=== PATIENT | female | born 1935 | race Caucasian/White ===

== ENCOUNTER 2023-07-24 21:17 | Inpatient (IN) | payer MEDICARE ==
[~2023-07-24] VITALS: Ht 154.9 cm; Wt 53.2 kg
[~2023-07-24 21:17] MED LIST: AVEL1TAB2; CALCTAB22; CELE100C; COMBIVENT; FOSAMAX; PRED10TA2; VITA500T
[2023-07-24] MEDS ORDERED: ALBU2.5V10 INH (21:37)
[2023-07-24] MEDS ORDERED: PULM0.25 NEB (21:37)
[2023-07-24] MEDS ORDERED: PERF20NE2 INH (21:37)
[2023-07-24 21:52] LABS: VENOUS BASE EXCESS 2.4 (-2.0-2.0); VENOUS HCO3 28.2 MMOL/L (23.0-27.0); VENOUS O2 SATURATION 88.7 % (60.0-80.0); VENOUS PARTIAL PRESSURE CO2 48.1 mmHg (38.0-50.0); VENOUS PARTIAL PRESSURE O2 56.3 mmHg (30.0-50.0); VENOUS PH 7.386 UNITS (7.330-7.430); VENOUS STANDARD HCO3 26.4 MMOL/L; VENOUS TOTAL CO2 29.7 MMOL/L (24.0-28.0)
[2023-07-24 22:00] LABS: BASO # 0.1 10^3/uL (0.0-0.2); BASO % 1.1 % (0.0-1.0); EOS # 0.4 10^3/uL (0.0-0.5); EOS % 4.4 % (0.0-3.0); HEMATOCRIT 40.4 % (36.0-47.0); HEMOGLOBIN 12.6 g/dl (12.0-15.5); LYMPH # 1.2 10^3/uL (1.5-5.0); LYMPH % 15.2 % (24.0-44.0); MEAN CORPUSCULAR HEMOGLOBIN 27.5 pg (27.0-33.0); MEAN CORPUSCULAR HGB CONC 31.2 g/dl (32.0-36.5); MEAN CORPUSCULAR VOLUME 88.2 fl (80.0-96.0); MONO # 0.6 10^3/uL (0.0-0.8); MONO % 7.4 % (2.0-8.0); NEUTROPHILS # 5.6 10^3/uL (1.5-8.5); NEUTROPHILS % 71.5 % (36.0-66.0); PLATELET COUNT, AUTOMATED 301 10^3/uL (150-450); RED BLOOD COUNT 4.58 10^6/uL (4.00-5.40); WHITE BLOOD COUNT 7.9 10^3/uL (4.0-10.0)
[2023-07-24 22:22] LABS: ALBUMIN 3.7 G/DL (3.2-5.2); ALKALINE PHOSPHATASE 43 U/L (46-116); ALT/SGPT 15 U/L (7.0-40); AST/SGOT 16 U/L (<34); BILIRUBIN,DIRECT 0.1 MG/DL (<0.4); BILIRUBIN,TOTAL 0.4 MG/DL (0.3-1.2); BLOOD UREA NITROGEN 15 MG/DL (9-23); CALCIUM LEVEL 9.8 MG/DL (8.3-10.6); CARBON DIOXIDE LEVEL 29 MMOL/L (20-31); CHLORIDE LEVEL 105 MMOL/L (98-107); CK-MB VALUE MASS 1.8 NG/ML (<3.6); CPK CREATINE PHOSPHOKINASE 71 U/L (34-145); CREATININE FOR GFR 0.62 MG/DL (0.55-1.30); GLOMERULAR FILTRATION RATE > 60.0 (>32); GLUCOSE, FASTING 103 MG/DL (74-106); MB/CK RELATIVE INDEX 2.53 (< OR =4); POTASSIUM SERUM 3.8 MMOL/L (3.5-5.1); SODIUM LEVEL 142 MMOL/L (136-145); TOTAL PROTEIN 6.4 G/DL (5.7-8.2)
[2023-07-24 22:24] LABS: THYROID STIMULATING HORMONE 3.509 uIU/ML (0.55-4.78); THYROXINE (T4) 8.3 UG/DL (4.5-10.9)
[2023-07-24 23:57] LABS: CK-MB VALUE MASS 1.5 NG/ML (<3.6)
[2023-07-25 00:43] LABS: MB/CK RELATIVE INDEX 2.27 (< OR =4)
[2023-07-25] MEDS: IPRATROPIUM 0.5MG/ALBUTEROL 2.5MG INH SOL UD 3ML (DUONEB) NEB ONE ×4 (01:18→02:04)
[2023-07-25] MEDS ORDERED: ACETAMINOPHEN TAB 650MG DOSE (2X325MG) PO PRN (03:40)
[2023-07-25] MEDS ORDERED: ALBUTEROL SULFATE 2.5MG/0.5ML INH NEB SOLN NEB PRN (03:40)
[2023-07-25] MEDS: DOXYCYCLINE HYCLATE 100MG TABLET PO ONE (04:18)
[2023-07-25] MEDS: methylPREDNISolone 125MG 2ML VIAL IV SCH (04:18)
[2023-07-25] MEDS ORDERED: C-501TAB3 PO (05:33)
[2023-07-25] MEDS ORDERED: VITA100093 PO (05:33)
[2023-07-25] MEDS ORDERED: CALC500T61 PO (05:33)
[2023-07-25] MEDS ORDERED: BUDE0.254 INH (05:33)
[2023-07-25] MEDS ORDERED: MED REC IN PROGRESS XX SCH (05:35)
[2023-07-25 07:00] LABS: CHOLESTEROL RISK RATIO 3.08 (<5); HDL CHOLESTEROL 58.3 MG/DL (>40); LDL CHOLESTEROL 105.9 MG/DL (<100); NON-HDL-C 121.7 MG/DL
[2023-07-25] MEDS: ASPIRIN 81MG CHEW TABLET PO SCH (08:00)
[2023-07-25] MEDS: HEPARIN SOD (PORCINE) 5000UNITS/ML 1ML VIAL/SYRINGE SC SCH (08:02)
[2023-07-25] MEDS: IPRATROPIUM 0.5MG/ALBUTEROL 2.5MG INH SOL UD 3ML (DUONEB) NEB SCH (08:07)
[2023-07-25] MEDS ORDERED: HOME MED LIST COMPLETE! XX SCH (08:10)
[2023-07-25 11:09] VITALS: BP 127/61; TEMP 98.8; O2SAT 94
[2023-07-25] MEDS ORDERED: AZITHROMYCIN 250MG TABLET PO SCH (12:15)
[2023-07-25] MEDS: ATORVASTATIN 20 MG TAB PO SCH (13:05)
[2023-07-25 16:00] VITALS: BP 124/58; TEMP 99.3; O2SAT 92
[2023-07-25] MEDS ORDERED: IPRA0.00 INH (19:12)
[2023-07-25] MEDS ORDERED: DOXY100T PO (19:12)
[2023-07-25] MEDS ORDERED: ATOR1TAB21 PO (19:12)
[2023-07-25] MEDS ORDERED: METO25TA4 PO (19:12)
[2023-07-25] MEDS ORDERED: PRED20TA PO (19:12)
[2023-07-25] MEDS ORDERED: ASPI81CH8 PO (19:12)
[2023-07-25] MEDS ORDERED: DOXYCYCLINE HYCLATE 100MG TABLET PO SCH (21:00)
[2023-07-26] MEDS ORDERED: predniSONE 20 MG TAB PO SCH (09:00)
== END 2023-07-25 21:36 | disposition home or self-care (01) | DRG 190 ==
LOC: M ED 21:17 → M ED INP 07-25 03:38 → M ICU 07-25 10:58
PROVIDERS: ADMIT Internal Medicine; ATTEND Student in an Organized Health Care Education/Training Program
DX: J44.1 Chronic obstructive pulmonary disease with (acute) exacerbation (principal); I21.A1 Myocardial infarction type 2; J96.12 Chronic respiratory failure with hypercapnia; J84.9 Interstitial pulmonary disease, unspecified; J96.11 Chronic respiratory failure with hypoxia; E55.9 Vitamin D deficiency, unspecified; Z99.81 Dependence on supplemental oxygen; R91.8 Other nonspecific abnormal finding of lung field; Z88.8 Allergy status to other drugs, medicaments and biological substances; Z79.899 Other long term (current) drug therapy; Z66 Do not resuscitate

== ENCOUNTER 2023-08-01 14:27 | Emergency (ER) | payer MEDICARE ==
[~2023-08-01] VITALS: Ht 154.9 cm; Wt 54.7 kg
[~2023-08-01 14:27] MED LIST changes: +ALBU2.5V10 INH; +ASPI81CH8 PO; +ATOR1TAB21 PO; +BUDE0.254 INH; +C-501TAB3 PO; +CALC500T61 PO; +DOXY100T PO; +IPRA0.00 INH; +METO25TA4 PO; +PERF20NE2 INH; +PRED20TA PO; +PULM0.25 NEB; +VITA100093 PO
[2023-08-01 16:10] LABS: BASO # 0.1 10^3/uL (0.0-0.2); BASO % 0.6 % (0.0-1.0); EOS # 0.4 10^3/uL (0.0-0.5); EOS % 4.6 % (0.0-3.0); HEMATOCRIT 41.4 % (36.0-47.0); LYMPH # 1.6 10^3/uL (1.5-5.0); LYMPH % 20.6 % (24.0-44.0); MEAN CORPUSCULAR HEMOGLOBIN 28.3 pg (27.0-33.0); MEAN CORPUSCULAR HGB CONC 31.4 g/dl (32.0-36.5); MONO # 0.7 10^3/uL (0.0-0.8); MONO % 8.6 % (2.0-8.0); NEUTROPHILS # 5.1 10^3/uL (1.5-8.5); NEUTROPHILS % 65.3 % (36.0-66.0); PLATELET COUNT, AUTOMATED 304 10^3/uL (150-450); WHITE BLOOD COUNT 7.8 10^3/uL (4.0-10.0)
[2023-08-01 16:39] LABS: BLOOD UREA NITROGEN 17 MG/DL (9-23); CARBON DIOXIDE LEVEL 32 MMOL/L (20-31); CHLORIDE LEVEL 107 MMOL/L (98-107); CREATININE FOR GFR 0.73 MG/DL (0.55-1.30); GLOMERULAR FILTRATION RATE > 60.0 (>32); GLUCOSE, FASTING 78 MG/DL (74-106); POTASSIUM SERUM 3.8 MMOL/L (3.5-5.1); SODIUM LEVEL 145 MMOL/L (136-145)
[2023-08-01] MEDS ORDERED: CEFD1CAP9 PO (17:09)
[2023-08-01] MEDS: CEFDINIR 300 MG CAP (OMNICEF) PO ONE (17:18)
[2023-08-01 17:20] VITALS: BP 166/72; TEMP 98.4; O2SAT 93
== END 2023-08-01 17:26 | disposition home or self-care (01) ==
LOC: M ED 14:27
DX: R79.9 Abnormal finding of blood chemistry, unspecified (principal); J44.9 Chronic obstructive pulmonary disease, unspecified; Z87.891 Personal history of nicotine dependence; Z79.899 Other long term (current) drug therapy; Z88.8 Allergy status to other drugs, medicaments and biological substances

== ENCOUNTER 2025-01-22 10:12 | Inpatient (IN) | payer MEDICARE ==
[~2025-01-22] VITALS: Ht 154.9 cm; Wt 52.7 kg
[~2025-01-22 10:12] MED LIST changes: +CEFD1CAP9 PO
[2025-01-22 10:51] LABS: BASO # 0.1 10^3/uL (0.0-0.2); BASO % 0.6 % (0.0-1.0); EOS # 0.2 10^3/uL (0.0-0.5); EOS % 2.4 % (0.0-3.0); LYMPH # 0.6 10^3/uL (1.5-5.0); LYMPH % 7.7 % (24.0-44.0); MONO # 0.6 10^3/uL (0.0-0.8); MONO % 7.7 % (2.0-8.0); NEUTROPHILS # 6.8 10^3/uL (1.5-8.5); NEUTROPHILS % 81.2 % (36.0-66.0); PLATELET COUNT, AUTOMATED 255 10^3/uL (150-450)
[2025-01-22 11:21] LABS: ALT/SGPT 17.0 U/L (7.0-40); AST/SGOT 17.0 U/L (<34); CALCIUM LEVEL 9.0 MG/DL (8.3-10.6); CARBON DIOXIDE LEVEL 30.0 MMOL/L (20-31); CHLORIDE LEVEL 103.0 MMOL/L (98-107); CREATININE FOR GFR 0.64 MG/DL (0.55-1.30); GLOMERULAR FILTRATION RATE 84.4 (>32); POTASSIUM SERUM 4.0 MMOL/L (3.5-5.1); SODIUM LEVEL 143.0 MMOL/L (136-145)
[2025-01-22] MEDS: ALBUTEROL SULFATE 2.5 MG/0.5 ML INH CONCENTRATE NEB SOLN INH ONE (12:38)
[2025-01-22] MEDS: IPRATROPIUM 0.5 MG/ALBUTEROL 2.5 MG INH SOL UD 3 ML NEB ONE (12:38)
[2025-01-22 14:50] LABS: ABG BASE EXCESS 1.4 (-2.0-2.0); ABG HCO3 26.1 MMOL/L (22.0-26.0); ABG O2 SATURATION 97.5 % (95.0-99.0); ABG PARTIAL PRESSURE CO2 41.2 mmHg (35.0-45.0); ABG PARTIAL PRESSURE O2 86.9 mmHg (75.0-100.0); ABG STANDARD HCO3 25.7 MMOL/L. (22.0-26.0); ABG TOTAL CO2 27.3 MMOL/L (23.0-31.0); ABG pH (ARTERIAL) 7.419 UNITS (7.350-7.450)
[2025-01-22] MEDS ORDERED: PRED25TA PO (16:59)
[2025-01-22] MEDS ORDERED: HOME MED LIST COMPLETE! XX SCH (17:00)
[2025-01-22] MEDS ORDERED: ACETAMINOPHEN 325 MG TAB PO PRN (17:05)
[2025-01-22] MEDS ORDERED: LEVALBUTEROL 1.25 MG 0.5ML CONCENTRATE NEB NEB PRN (17:05)
[2025-01-22 18:00] VITALS: BP 146/65; TEMP 97.4; O2SAT 96
[2025-01-22 18:27] LABS: INR 0.91
[2025-01-22] MEDS: AZITHROMYCIN 250 MG TABLET PO SCH (18:51)
[2025-01-22 19:39] VITALS: BP 118/50; TEMP 98; O2SAT 97
[2025-01-22] MEDS: BUDESONIDE 0.5 MG/2 ML INHALATION SUSPENSION NEB SCH (19:46)
[2025-01-22] MEDS: LEVALBUTEROL 1.25 MG 0.5ML CONCENTRATE NEB NEB SCH (19:46)
[2025-01-23 03:35] VITALS: BP 109/65; TEMP 97.2; O2SAT 100
[2025-01-23 06:32] LABS: PLATELET COUNT, AUTOMATED 273 10^3/uL (150-450)
[2025-01-23 06:50] LABS: ALT/SGPT 17.0 U/L (7.0-40); AST/SGOT 12.0 U/L (<34); CALCIUM LEVEL 9.1 MG/DL (8.3-10.6); CARBON DIOXIDE LEVEL 30.0 MMOL/L (20-31); CHLORIDE LEVEL 103.0 MMOL/L (98-107); CREATININE FOR GFR 0.73 MG/DL (0.55-1.30); GLOMERULAR FILTRATION RATE 78.6 (>32); POTASSIUM SERUM 4.5 MMOL/L (3.5-5.1); SODIUM LEVEL 143.0 MMOL/L (136-145)
[2025-01-23] MEDS: ENOXAPARIN 40 MG/0.4 ML SYRINGE (J1650 PER 10MG) SC SCH (09:19)
[2025-01-23 12:17] VITALS: BP 133/60; TEMP 98; O2SAT 96
[2025-01-23 19:55] VITALS: BP 137/62; TEMP 97.4; O2SAT 96
[2025-01-24 04:18] VITALS: BP 130/64; TEMP 97.6; O2SAT 96
[2025-01-24 07:05] LABS: PLATELET COUNT, AUTOMATED 290 10^3/uL (150-450)
[2025-01-24 07:32] LABS: ALT/SGPT 17.0 U/L (7.0-40); AST/SGOT 13.0 U/L (<34); CALCIUM LEVEL 9.4 MG/DL (8.3-10.6); CARBON DIOXIDE LEVEL 27.0 MMOL/L (20-31); CHLORIDE LEVEL 104.0 MMOL/L (98-107); CREATININE FOR GFR 0.72 MG/DL (0.55-1.30); GLOMERULAR FILTRATION RATE 79.9 (>32); POTASSIUM SERUM 4.0 MMOL/L (3.5-5.1); SODIUM LEVEL 142.0 MMOL/L (136-145)
[2025-01-24] MEDS ORDERED: PRED20TA PO (08:58)
== END 2025-01-24 11:47 | disposition home or self-care (01) | DRG 191 ==
LOC: M ED 10:12 → EDBD 10:12 → M ED INP 10:13 → M MSPAV 17:59 → OBSVTOIN 01-23 15:25
PROVIDERS: ADMIT Internal Medicine; ATTEND Internal Medicine
DX: J44.1 Chronic obstructive pulmonary disease with (acute) exacerbation (principal); J96.11 Chronic respiratory failure with hypoxia; M35.3 Polymyalgia rheumatica; E78.5 Hyperlipidemia, unspecified; M81.0 Age-related osteoporosis without current pathological fracture; M19.90 Unspecified osteoarthritis, unspecified site; M54.9 Dorsalgia, unspecified; G89.29 Other chronic pain; Z90.79 Acquired absence of other genital organ(s); R19.7 Diarrhea, unspecified; Z79.51 Long term (current) use of inhaled steroids; Z79.52 Long term (current) use of systemic steroids; Z79.899 Other long term (current) drug therapy; Z99.81 Dependence on supplemental oxygen; Z88.8 Allergy status to other drugs, medicaments and biological substances